=== PATIENT | male | born 1950 | race Caucasian/White ===

== ENCOUNTER 2017-12-05 13:15 | Emergency (ER) | payer MEDICARE, OTHER ==
[~2017-12-05] VITALS: Ht 175.3 cm; Wt 62.5 kg
[2017-12-05 13:25] VITALS: BP 139/59
[2017-12-05] MEDS ORDERED: [UNRECOGNIZED DRUG - OTHER] PO (13:34)
[2017-12-05] MEDS ORDERED: BUPR100 PO (13:34)
[2017-12-05] MEDS ORDERED: TRAZ150 PO (13:34)
[2017-12-05] MEDS ORDERED: OMEP10 PO (13:34)
[2017-12-05] MEDS ORDERED: PARO10TA89 PO (13:34)
== END 2017-12-05 14:39 | disposition left against medical advice (07) ==
LOC: EMS 13:19
DX: F32.9 Major depressive disorder, single episode, unspecified (principal); F12.10 Cannabis abuse, uncomplicated; F17.210 Nicotine dependence, cigarettes, uncomplicated
CPT/HCPCS: 99284

== ENCOUNTER 2017-12-11 13:37 | Emergency (ER) | payer MEDICARE, OTHER ==
[~2017-12-11] VITALS: Ht 175.3 cm; Wt 61.8 kg
[~2017-12-11 13:37] MED LIST: BUPR100 PO; OMEP10 PO; PARO10TA89 PO; TRAZ150 PO; [UNRECOGNIZED DRUG - OTHER] PO
[2017-12-11] MEDS ORDERED: [UNRECOGNIZED DRUG - CODE] PO (14:03)
[2017-12-11] MEDS ORDERED: FINA5TAB41 PO (14:03)
[2017-12-11] MEDS ORDERED: FOLI0.4T4 PO (14:03)
[2017-12-11] MEDS ORDERED: METH10SO PO (14:03)
[2017-12-11] MEDS ORDERED: MECL-111 PO (14:03)
[2017-12-11] MEDS ORDERED: PARO10TA89 PO (14:03)
[2017-12-11] MEDS ORDERED: PANT40TA25 PO (14:03)
[2017-12-11 14:36] VITALS: BP 137/78
== END 2017-12-11 14:46 | disposition home or self-care (01) ==
LOC: EMS 13:39
DX: F32.9 Major depressive disorder, single episode, unspecified (principal); G89.29 Other chronic pain; M54.9 Dorsalgia, unspecified; N40.0 Benign prostatic hyperplasia without lower urinary tract symptoms; F17.210 Nicotine dependence, cigarettes, uncomplicated; Z88.8 Allergy status to other drugs, medicaments and biological substances; Z79.899 Other long term (current) drug therapy
CPT/HCPCS: 99284

== ENCOUNTER 2022-11-22 12:11 | Inpatient (IN) | payer MEDICARE, MEDICAID ==
[~2022-11-22] VITALS: Ht 175.3 cm; Wt 74.6 kg
[~2022-11-22 12:11] MED LIST changes: +BUPR-345 PO; -BUPR100 PO; +FINA-27 PO; +FOLI0.4T6 PO; +GABA-583 PO; +MECL-160 PO; +METH10SO PO; -OMEP10 PO; +PANT-31 PO; -TRAZ150 PO; +TRAZ150T79 PO; +[UNRECOGNIZED DRUG - CODE] PO
[2022-11-22] MEDS ORDERED: TOPI25 PO (13:11)
[2022-11-22] MEDS ORDERED: BUPR-50 PO (13:11)
[2022-11-22] MEDS ORDERED: PROP20TA96 PO (13:11)
[2022-11-22] MEDS ORDERED: LISI2.5T13 PO (13:11)
[2022-11-22] MEDS ORDERED: METO25 PO (13:11)
[2022-11-22] MEDS ORDERED: SODIUM CHLORIDE 0.9% 2,250 ML IV ONE (13:15)
[2022-11-22] MEDS ORDERED: 0.9% SODIUM CHLORIDE 10 ML SYRINGE IVP PRN (13:15)
[2022-11-22 13:26] LABS: COVID AG,FIA SOURCE NASAL SWAB
[2022-11-22 14:18] LABS: BASOPHILS % (AUTO) 0.4 % (0.0-2.0); EOSINOPHILS % (AUTO) 0.1 % (1.0-6.0); HEMATOCRIT 43.8 % (41-53); HEMOGLOBIN 14.4 g/dL (13.5-17.5); LYMPHOCYTES # (AUTO) 1.2 K/uL (1.0-4.8); LYMPHOCYTES % (AUTO) 13.8 % (22.0-44.0); MEAN CORPUSCULAR HEMOGLOBIN 32.1 pg (26.0-34.0); MEAN CORPUSCULAR HGB CONC 32.7 G/dL (31.0-37.0); MEAN CORPUSCULAR VOLUME 98 fL (80-100); MONOCYTES % (AUTO) 11.8 % (2.0-9.0); NEUTROPHILS # (AUTO) 6.4 K/uL (1.8-7.7); NEUTROPHILS % (AUTO) 73.9 % (40.0-70.0); PLATELET COUNT (AUTO) 219 K/uL (150-450); RED BLOOD CELL COUNT(AUTO) 4.47 MIL/uL (4.50-5.90); RED CELL DISTRIBUTION WIDTH 14.2 % (11.5-14.5)
[2022-11-22 14:23] LABS: ANION GAP 12 mmol/L (8-16); CALCIUM, TOTAL 9.5 mg/dL (8.8-10.5); CARBON DIOXIDE 24 mmol/L (22-29); CHLORIDE 98 mmol/L (98-107); CREATININE 1.21 mg/dL (0.60-1.30); GLOMERULAR FILTR. RATE CALC 59 mL/min (>60); GLUCOSE,RANDOM 118 mg/dL (70-110); SODIUM SERUM 134 mmol/L (136-145); UREA NITROGEN, BLOOD 12 mg/dL (7-18)
[2022-11-22 14:26] LABS: D-DIMER 0.76 mg/L FEU (0.00-0.50); INR 1.1 (0.9-1.1); PROTHROMBIN TIME 11.2 SEC (9.4-11.6)
[2022-11-22 14:31] LABS: INFLUENZA TYPE A NEGATIVE FOR TYPE A (NEGATIVE); INFLUENZA TYPE B NEGATIVE FOR TYPE B (NEGATIVE)
[2022-11-22 14:32] LABS: LACTIC ACID 1.5 mmol/L (0.4-2.0)
[2022-11-22 14:33] LABS: B-TYPE NATRIURETIC PEPTIDE 45 pg/mL (0-100)
[2022-11-22] MEDS ORDERED: SODIUM CHLORIDE 0.9% 100 ML ONE (14:39)
[2022-11-22 14:46] LABS: ALANINE AMINOTRANSFERASE 30 U/L (12-78); ALBUMIN 3.8 g/dL (3.4-5.0); ALKALINE PHOSPHATASE 100 U/L (46-116); ASPARTATE AMINOTRANSFERASE 24 U/L (15-37); BILIRUBIN,TOTAL 0.7 mg/dL (0.1-1.0); CREATINE KINASE, TOTAL ONLY 170 U/L (39-308); TOTAL PROTEIN, SERUM 7.9 g/dL (6.4-8.2)
[2022-11-22 15:49] LABS: AMPHET/METH SCREEN,URINE NEGATIVE (NEGATIVE); BARBITURATE SCREEN, URINE NEGATIVE (NEGATIVE); BENZODIAZEPINES SCREEN,URINE NEGATIVE (NEGATIVE); CANNABINOID SCREEN,URINE POSITIVE (NEGATIVE); COCAINE SCREEN,URINE NEGATIVE (NEGATIVE); METHADONE SCREEN, URINE NEGATIVE (NEGATIVE); OPIATE SCREEN,URINE NEGATIVE (NEGATIVE); PHENCYCLIDINE SCREEN,URINE NEGATIVE (NEGATIVE)
[2022-11-22 16:02] LABS: APPEARANCE,URINE TURBID (CLEAR); BILIRUBIN,URINE NEGATIVE (NEGATIVE); GLUCOSE, URINE (UA) NEGATIVE (NEGATIVE); LEUKOCYTE ESTERASE ,URINE LARGE (NEGATIVE); NITRATE,URINE POSITIVE (NEGATIVE); OCCULT BLOOD,URINE SMALL (NEGATIVE); PROTEIN,URINE 30-70 mg/dL (NEGATIVE); SPECIFIC GRAVITIY, URINE 1.012 (1.003-1.030); UROBILINOGEN,URINE <=1.0 mg/dL (<=1.0)
[2022-11-22] MEDS ORDERED: IOHEXOL 350 MG/ML 100 ML VIAL ONE (16:03)
[2022-11-22 16:10] LABS: BACTERIA,URINE Many /HPF (None Seen); SQUAMOUS EPITHELIAL CELL,UR Few /LPF (None Seen); WBC,URINE >100 /HPF (0-5)
[2022-11-22] MEDS ORDERED: CefTRIAXone 1 GM/DEXTROSE 50 ML IV ONE (16:15)
[2022-11-22] MEDS ORDERED: ACETAMINOPHEN 500 MG TABLET PO ONE (17:45)
[2022-11-22] MEDS ORDERED: DIAZEPAM 5 MG/ML 2 ML SYRINGE IVP ONE (18:30)
[2022-11-22] MEDS ORDERED: ACETAMINOPHEN 325 MG TABLET PO PRN ×2 (18:45→19:45)
[2022-11-22] MEDS ORDERED: ONDANSETRON HCL 4 MG/2 ML VIAL IVP PRN ×2 (18:45→19:45)
[2022-11-22] MEDS ORDERED: MAGNESIUM HYDROXIDE SUSPENSION 30 ML UDCUP PO PRN (19:45)
[2022-11-22] MEDS ORDERED: MORPHINE SULFATE 2 MG/ML SYRINGE IVP PRN (19:45)
[2022-11-22] MEDS ORDERED: BISACODYL 10 MG RECTAL RECTAL SUPPOSITORY PR PRN (19:45)
[2022-11-22] MEDS ORDERED: *CLINICAL-LEVOFLOXACIN IVPB DOSING CLINICAL ONE (19:45)
[2022-11-22] MEDS ORDERED: HYDROCODONE/ACETAMINOPHEN 5-325 MG TABLET PO PRN (19:45)
[2022-11-22] MEDS ORDERED: ChlordiazePOXIDE HCL 25 MG CAPSULE PO PRN ×2 (19:45→20:15)
[2022-11-22] MEDS ORDERED: MAGNESIUM SULFATE 2 GM, MVI, ADULT NO.1 WITH VIT K 10 ML, THIAMINE 100 MG, FOLIC ACID 1... IV ONE ×5 (19:45)
[2022-11-22] MEDS ORDERED: ZOLPIDEM TARTRATE 5 MG TABLET PO PRN (19:45)
[2022-11-22] MEDS: TOPIRAMATE 25 MG TABLET PO SCH (20:39)
[2022-11-22] MEDS ORDERED: ChlordiazePOXIDE HCL 10 MG CAPSULE PO SCH (21:00)
[2022-11-22] MEDS ORDERED: LEVOFLOXACIN 500 MG/D5% WATER 100 ML IV SCH (21:00)
[2022-11-22 21:06] VITALS: BP 127/81
[2022-11-23] MEDS: HEPARIN SODIUM,PORCINE 5,000 UNITS/ML VIAL SQ SCH ×3 (02:01→17:06)
[2022-11-23] MEDS: DOCUSATE SODIUM 100 MG CAPSULE PO SCH ×3 (02:01→20:59)
[2022-11-23 03:35] VITALS: BP 127/77
[2022-11-23] MEDS ORDERED: ChlordiazePOXIDE HCL 25 MG CAPSULE PO PRN ×2 (07:00)
[2022-11-23 07:38] LABS: ANION GAP 11 mmol/L (8-16); CALCIUM, TOTAL 8.3 mg/dL (8.8-10.5); CARBON DIOXIDE 20 mmol/L (22-29); CHLORIDE 103 mmol/L (98-107); CREATININE 1.04 mg/dL (0.60-1.30); GLOMERULAR FILTR. RATE CALC > 60 mL/min (>60); GLUCOSE,RANDOM 93 mg/dL (70-110); POTASSIUM 3.9 mmol/L (3.5-5.1); SODIUM SERUM 134 mmol/L (136-145); UREA NITROGEN, BLOOD 10 mg/dL (7-18)
[2022-11-23 08:01] VITALS: BP 124/80
[2022-11-23] MEDS ORDERED: ChlordiazePOXIDE HCL 25 MG CAPSULE PO SCH (09:00)
[2022-11-23] MEDS: PANTOPRAZOLE SODIUM 40 MG DR TABLET PO SCH (09:10)
[2022-11-23 09:11] LABS: BASOPHILS % (AUTO) 0.3 % (0.0-2.0); EOSINOPHILS % (AUTO) 0.7 % (1.0-6.0); HEMATOCRIT 39.3 % (41-53); HEMOGLOBIN 12.8 g/dL (13.5-17.5); LYMPHOCYTES # (AUTO) 1.3 K/uL (1.0-4.8); LYMPHOCYTES % (AUTO) 19.4 % (22.0-44.0); MEAN CORPUSCULAR HEMOGLOBIN 32.3 pg (26.0-34.0); MEAN CORPUSCULAR HGB CONC 32.5 G/dL (31.0-37.0); MEAN CORPUSCULAR VOLUME 99 fL (80-100); MONOCYTES # (AUTO) 0.6 K/uL (0.1-1.0); MONOCYTES % (AUTO) 9.9 % (2.0-9.0); NEUTROPHILS # (AUTO) 4.6 K/uL (1.8-7.7); NEUTROPHILS % (AUTO) 69.7 % (40.0-70.0); PLATELET COUNT (AUTO) 175 K/uL (150-450); RED BLOOD CELL COUNT(AUTO) 3.96 MIL/uL (4.50-5.90); RED CELL DISTRIBUTION WIDTH 14.6 % (11.5-14.5)
[2022-11-23] MEDS: PARoxetine HCL 10 MG TABLET PO SCH (09:11)
[2022-11-23] MEDS: BuPROPion HCL XL 150 MG ER TABLET PO SCH (09:11)
[2022-11-23] MEDS: METOPROLOL TARTRATE 25 MG TABLET PO SCH (09:11)
[2022-11-23] MEDS: TOPIRAMATE 25 MG TABLET PO SCH ×2 (09:11→20:59)
[2022-11-23] MEDS: FINASTERIDE 5 MG TABLET PO SCH (09:11)
[2022-11-23] MEDS: ChlordiazePOXIDE HCL 25 MG CAPSULE PO SCH ×4 (09:11→20:59)
[2022-11-23 11:32] VITALS: BP 128/89
[2022-11-23 16:00] VITALS: BP 133/83
[2022-11-23 20:39] VITALS: BP 118/76
[2022-11-23] MEDS: LEVOFLOXACIN 750 MG/D5% WATER 150 ML IV SCH (20:59)
[2022-11-24] VITALS (7 sets, daily range): BP systolic 104–140; BP diastolic 58–86
[2022-11-24] MEDS: HEPARIN SODIUM,PORCINE 5,000 UNITS/ML VIAL SQ SCH ×4 (00:04→23:32)
[2022-11-24 07:10] LABS: BASOPHILS % (AUTO) 0.3 % (0.0-2.0); EOSINOPHILS % (AUTO) 0.9 % (1.0-6.0); HEMATOCRIT 39.6 % (41-53); HEMOGLOBIN 13.3 g/dL (13.5-17.5); LYMPHOCYTES # (AUTO) 1.7 K/uL (1.0-4.8); MEAN CORPUSCULAR HEMOGLOBIN 33.1 pg (26.0-34.0); MEAN CORPUSCULAR HGB CONC 33.7 G/dL (31.0-37.0); MEAN CORPUSCULAR VOLUME 98 fL (80-100); MONOCYTES # (AUTO) 0.7 K/uL (0.1-1.0); MONOCYTES % (AUTO) 12.6 % (2.0-9.0); NEUTROPHILS % (AUTO) 55.2 % (40.0-70.0); PLATELET COUNT (AUTO) 192 K/uL (150-450); RED BLOOD CELL COUNT(AUTO) 4.03 MIL/uL (4.50-5.90)
[2022-11-24 07:30] LABS: ANION GAP 11 mmol/L (8-16); CALCIUM, TOTAL 8.5 mg/dL (8.8-10.5); CARBON DIOXIDE 20 mmol/L (22-29); CHLORIDE 105 mmol/L (98-107); CREATININE 1.07 mg/dL (0.60-1.30); GLOMERULAR FILTR. RATE CALC > 60 mL/min (>60); GLUCOSE,RANDOM 92 mg/dL (70-110); POTASSIUM 3.8 mmol/L (3.5-5.1); SODIUM SERUM 136 mmol/L (136-145); UREA NITROGEN, BLOOD 10 mg/dL (7-18)
[2022-11-24] MEDS: PARoxetine HCL 10 MG TABLET PO SCH (09:14)
[2022-11-24] MEDS: ChlordiazePOXIDE HCL 25 MG CAPSULE PO SCH ×4 (09:14→21:34)
[2022-11-24] MEDS: FINASTERIDE 5 MG TABLET PO SCH (09:14)
[2022-11-24] MEDS: PANTOPRAZOLE SODIUM 40 MG DR TABLET PO SCH (09:14)
[2022-11-24] MEDS: DOCUSATE SODIUM 100 MG CAPSULE PO SCH ×2 (09:14→21:34)
[2022-11-24] MEDS: BuPROPion HCL XL 150 MG ER TABLET PO SCH (09:15)
[2022-11-24] MEDS: METOPROLOL TARTRATE 25 MG TABLET PO SCH (09:15)
[2022-11-24] MEDS: TOPIRAMATE 25 MG TABLET PO SCH ×2 (09:16→21:33)
[2022-11-24] MEDS: MAGNESIUM SULFATE 2 GM, MVI, ADULT NO.1 WITH VIT K 10 ML, THIAMINE 100 MG, FOLIC ACID 1... IV SCH ×5 (16:14)
[2022-11-24] MEDS ORDERED: SODIUM CHLORIDE 0.9% 500 ML IV ONE (21:29)
[2022-11-24] MEDS: LEVOFLOXACIN 750 MG/D5% WATER 150 ML IV SCH (21:33)
[2022-11-25 05:08] VITALS: BP 128/82
[2022-11-25] MEDS ORDERED: ChlordiazePOXIDE HCL 10 MG CAPSULE PO PRN ×2 (07:00)
[2022-11-25 07:24] VITALS: BP 140/84
[2022-11-25 07:51] LABS: ANION GAP 9 mmol/L (8-16); CALCIUM, TOTAL 8.3 mg/dL (8.8-10.5); CARBON DIOXIDE 21 mmol/L (22-29); CHLORIDE 104 mmol/L (98-107); CREATININE 1.15 mg/dL (0.60-1.30); GLOMERULAR FILTR. RATE CALC > 60 mL/min (>60); GLUCOSE,RANDOM 113 mg/dL (70-110); SODIUM SERUM 134 mmol/L (136-145); UREA NITROGEN, BLOOD 12 mg/dL (7-18)
[2022-11-25 08:26] LABS: BASOPHILS % (AUTO) 0.3 % (0.0-2.0); EOSINOPHILS % (AUTO) 0.8 % (1.0-6.0); LYMPHOCYTES # (AUTO) 1.3 K/uL (1.0-4.8); LYMPHOCYTES % (AUTO) 23.1 % (22.0-44.0); MEAN CORPUSCULAR HEMOGLOBIN 32.8 pg (26.0-34.0); MEAN CORPUSCULAR HGB CONC 33.3 G/dL (31.0-37.0); MEAN CORPUSCULAR VOLUME 98 fL (80-100); MONOCYTES # (AUTO) 0.7 K/uL (0.1-1.0); MONOCYTES % (AUTO) 12.1 % (2.0-9.0); NEUTROPHILS # (AUTO) 3.7 K/uL (1.8-7.7); NEUTROPHILS % (AUTO) 63.7 % (40.0-70.0); PLATELET COUNT (AUTO) 191 K/uL (150-450); RED BLOOD CELL COUNT(AUTO) 3.96 MIL/uL (4.50-5.90); RED CELL DISTRIBUTION WIDTH 14.2 % (11.5-14.5)
[2022-11-25] MEDS: PARoxetine HCL 10 MG TABLET PO SCH (09:02)
[2022-11-25] MEDS: DOCUSATE SODIUM 100 MG CAPSULE PO SCH ×2 (09:04→21:00)
[2022-11-25] MEDS: BuPROPion HCL XL 150 MG ER TABLET PO SCH (09:04)
[2022-11-25] MEDS: TOPIRAMATE 25 MG TABLET PO SCH ×2 (09:04→21:19)
[2022-11-25] MEDS: PANTOPRAZOLE SODIUM 40 MG DR TABLET PO SCH (09:05)
[2022-11-25] MEDS: FINASTERIDE 5 MG TABLET PO SCH (09:05)
[2022-11-25] MEDS: METOPROLOL TARTRATE 25 MG TABLET PO SCH (09:05)
[2022-11-25] MEDS: ChlordiazePOXIDE HCL 10 MG CAPSULE PO SCH ×4 (09:06→21:19)
[2022-11-25] MEDS: HEPARIN SODIUM,PORCINE 5,000 UNITS/ML VIAL SQ SCH ×3 (09:17→23:55)
[2022-11-25 11:41] VITALS: BP 121/83
[2022-11-25 15:35] VITALS: BP 119/78
[2022-11-25] MEDS: MAGNESIUM SULFATE 2 GM, MVI, ADULT NO.1 WITH VIT K 10 ML, THIAMINE 100 MG, FOLIC ACID 1... IV SCH ×5 (16:56)
[2022-11-25 20:44] VITALS: BP 138/90
[2022-11-25] MEDS: LEVOFLOXACIN 750 MG/D5% WATER 150 ML IV SCH (21:19)
[2022-11-25] MEDS ORDERED: LORazepam 2 MG/ML VIAL IVP PRN (23:45)
[2022-11-26 00:24] VITALS: BP 132/78
[2022-11-26 04:13] VITALS: BP 129/85
[2022-11-26] MEDS ORDERED: ChlordiazePOXIDE HCL 10 MG CAPSULE PO PRN ×2 (07:00)
[2022-11-26 07:08] LABS: BASOPHILS % (AUTO) 0.4 % (0.0-2.0); EOSINOPHILS % (AUTO) 1.1 % (1.0-6.0); HEMATOCRIT 36.1 % (41-53); HEMOGLOBIN 11.9 g/dL (13.5-17.5); LYMPHOCYTES # (AUTO) 1.8 K/uL (1.0-4.8); LYMPHOCYTES % (AUTO) 35.7 % (22.0-44.0); MEAN CORPUSCULAR HEMOGLOBIN 32.3 pg (26.0-34.0); MEAN CORPUSCULAR VOLUME 98 fL (80-100); MONOCYTES # (AUTO) 0.6 K/uL (0.1-1.0); MONOCYTES % (AUTO) 11.1 % (2.0-9.0); NEUTROPHILS # (AUTO) 2.6 K/uL (1.8-7.7); NEUTROPHILS % (AUTO) 51.7 % (40.0-70.0); PLATELET COUNT (AUTO) 219 K/uL (150-450); RED BLOOD CELL COUNT(AUTO) 3.69 MIL/uL (4.50-5.90); RED CELL DISTRIBUTION WIDTH 14.5 % (11.5-14.5)
[2022-11-26 07:18] VITALS: BP 138/83
[2022-11-26 07:22] LABS: ALANINE AMINOTRANSFERASE 33 U/L (12-78); ALBUMIN 2.8 g/dL (3.4-5.0); ALKALINE PHOSPHATASE 75 U/L (46-116); ANION GAP 12 mmol/L (8-16); ASPARTATE AMINOTRANSFERASE 21 U/L (15-37); BILIRUBIN,TOTAL 0.3 mg/dL (0.1-1.0); CALCIUM, TOTAL 8.6 mg/dL (8.8-10.5); CARBON DIOXIDE 19 mmol/L (22-29); CHLORIDE 108 mmol/L (98-107); CREATININE 0.92 mg/dL (0.60-1.30); GLOMERULAR FILTR. RATE CALC > 60 mL/min (>60); GLUCOSE,RANDOM 98 mg/dL (70-110); SODIUM SERUM 139 mmol/L (136-145); UREA NITROGEN, BLOOD 13 mg/dL (7-18)
[2022-11-26] MEDS: DOCUSATE SODIUM 100 MG CAPSULE PO SCH ×2 (09:04→21:55)
[2022-11-26] MEDS: PANTOPRAZOLE SODIUM 40 MG DR TABLET PO SCH (09:05)
[2022-11-26] MEDS: FINASTERIDE 5 MG TABLET PO SCH (09:06)
[2022-11-26] MEDS: TOPIRAMATE 25 MG TABLET PO SCH ×2 (09:06→21:55)
[2022-11-26] MEDS: METOPROLOL TARTRATE 25 MG TABLET PO SCH (09:06)
[2022-11-26] MEDS: HEPARIN SODIUM,PORCINE 5,000 UNITS/ML VIAL SQ SCH ×2 (09:06→16:27)
[2022-11-26] MEDS: BuPROPion HCL XL 150 MG ER TABLET PO SCH (09:07)
[2022-11-26] MEDS: PARoxetine HCL 10 MG TABLET PO SCH (09:07)
[2022-11-26 11:14] VITALS: BP 118/71
[2022-11-26] MEDS: [UNRECOGNIZED DRUG - REMARK] IV SCH ×6 (15:03)
[2022-11-26 15:15] VITALS: BP 123/73
[2022-11-26 20:00] VITALS: BP 121/69
[2022-11-26] MEDS: LEVOFLOXACIN 750 MG/D5% WATER 150 ML IV SCH (21:54)
[2022-11-27] VITALS (7 sets, daily range): BP systolic 108–130; BP diastolic 63–76
[2022-11-27] MEDS: HEPARIN SODIUM,PORCINE 5,000 UNITS/ML VIAL SQ SCH ×3 (00:50→15:40)
[2022-11-27 07:28] LABS: ALANINE AMINOTRANSFERASE 36 U/L (12-78); ALBUMIN 2.8 g/dL (3.4-5.0); ALKALINE PHOSPHATASE 76 U/L (46-116); ANION GAP 9 mmol/L (8-16); ASPARTATE AMINOTRANSFERASE 26 U/L (15-37); BILIRUBIN,TOTAL 0.3 mg/dL (0.1-1.0); CALCIUM, TOTAL 8.9 mg/dL (8.8-10.5); CARBON DIOXIDE 20 mmol/L (22-29); CHLORIDE 108 mmol/L (98-107); CREATININE 0.88 mg/dL (0.60-1.30); GLOMERULAR FILTR. RATE CALC > 60 mL/min (>60); GLUCOSE,RANDOM 98 mg/dL (70-110); POTASSIUM 3.9 mmol/L (3.5-5.1); SODIUM SERUM 137 mmol/L (136-145); TOTAL PROTEIN, SERUM 7.1 g/dL (6.4-8.2); UREA NITROGEN, BLOOD 13 mg/dL (7-18)
[2022-11-27 07:29] LABS: BASOPHILS % (AUTO) 0.6 % (0.0-2.0); EOSINOPHILS % (AUTO) 1.4 % (1.0-6.0); HEMATOCRIT 37.7 % (41-53); HEMOGLOBIN 12.7 g/dL (13.5-17.5); LYMPHOCYTES # (AUTO) 1.7 K/uL (1.0-4.8); LYMPHOCYTES % (AUTO) 31.5 % (22.0-44.0); MEAN CORPUSCULAR HEMOGLOBIN 33.1 pg (26.0-34.0); MEAN CORPUSCULAR HGB CONC 33.8 G/dL (31.0-37.0); MEAN CORPUSCULAR VOLUME 98 fL (80-100); MONOCYTES # (AUTO) 0.4 K/uL (0.1-1.0); MONOCYTES % (AUTO) 8.3 % (2.0-9.0); NEUTROPHILS # (AUTO) 3.1 K/uL (1.8-7.7); NEUTROPHILS % (AUTO) 58.2 % (40.0-70.0); PLATELET COUNT (AUTO) 223 K/uL (150-450); RED BLOOD CELL COUNT(AUTO) 3.85 MIL/uL (4.50-5.90); RED CELL DISTRIBUTION WIDTH 14.2 % (11.5-14.5)
[2022-11-27] MEDS: PANTOPRAZOLE SODIUM 40 MG DR TABLET PO SCH (09:13)
[2022-11-27] MEDS: DOCUSATE SODIUM 100 MG CAPSULE PO SCH ×2 (09:14→20:52)
[2022-11-27] MEDS: METOPROLOL TARTRATE 25 MG TABLET PO SCH (09:15)
[2022-11-27] MEDS: BuPROPion HCL XL 150 MG ER TABLET PO SCH (09:15)
[2022-11-27] MEDS: FINASTERIDE 5 MG TABLET PO SCH (09:15)
[2022-11-27] MEDS: TOPIRAMATE 25 MG TABLET PO SCH ×2 (09:15→20:52)
[2022-11-27] MEDS: PARoxetine HCL 10 MG TABLET PO SCH (09:15)
[2022-11-27] MEDS: [UNRECOGNIZED DRUG - REMARK] IV SCH ×6 (15:39)
[2022-11-27] MEDS: LEVOFLOXACIN 750 MG/D5% WATER 150 ML IV SCH (20:52)
[2022-11-28] MEDS: HEPARIN SODIUM,PORCINE 5,000 UNITS/ML VIAL SQ SCH ×3 (00:31→16:32)
[2022-11-28 03:30] VITALS: BP 128/78
[2022-11-28 07:17] LABS: BASOPHILS % (AUTO) 0.9 % (0.0-2.0); EOSINOPHILS % (AUTO) 1.5 % (1.0-6.0); HEMATOCRIT 37.2 % (41-53); HEMOGLOBIN 12.5 g/dL (13.5-17.5); LYMPHOCYTES # (AUTO) 1.9 K/uL (1.0-4.8); LYMPHOCYTES % (AUTO) 35.9 % (22.0-44.0); MEAN CORPUSCULAR HEMOGLOBIN 32.7 pg (26.0-34.0); MEAN CORPUSCULAR HGB CONC 33.5 G/dL (31.0-37.0); MEAN CORPUSCULAR VOLUME 98 fL (80-100); MONOCYTES # (AUTO) 0.4 K/uL (0.1-1.0); MONOCYTES % (AUTO) 8.2 % (2.0-9.0); NEUTROPHILS # (AUTO) 2.9 K/uL (1.8-7.7); NEUTROPHILS % (AUTO) 53.5 % (40.0-70.0); PLATELET COUNT (AUTO) 242 K/uL (150-450); RED BLOOD CELL COUNT(AUTO) 3.81 MIL/uL (4.50-5.90); RED CELL DISTRIBUTION WIDTH 14.2 % (11.5-14.5)
[2022-11-28 07:43] LABS: ALANINE AMINOTRANSFERASE 49 U/L (12-78); ALBUMIN 2.8 g/dL (3.4-5.0); ALKALINE PHOSPHATASE 81 U/L (46-116); ANION GAP 8 mmol/L (8-16); ASPARTATE AMINOTRANSFERASE 30 U/L (15-37); BILIRUBIN,TOTAL 0.2 mg/dL (0.1-1.0); CALCIUM, TOTAL 9.4 mg/dL (8.8-10.5); CARBON DIOXIDE 24 mmol/L (22-29); CHLORIDE 108 mmol/L (98-107); CREATININE 1.13 mg/dL (0.60-1.30); GLOMERULAR FILTR. RATE CALC > 60 mL/min (>60); GLUCOSE,RANDOM 139 mg/dL (70-110); POTASSIUM 4.5 mmol/L (3.5-5.1); SODIUM SERUM 140 mmol/L (136-145); TOTAL PROTEIN, SERUM 7.2 g/dL (6.4-8.2); UREA NITROGEN, BLOOD 17 mg/dL (7-18)
[2022-11-28 07:54] VITALS: BP 133/82
[2022-11-28] MEDS: METOPROLOL TARTRATE 25 MG TABLET PO SCH (10:20)
[2022-11-28] MEDS: TOPIRAMATE 25 MG TABLET PO SCH (10:20)
[2022-11-28] MEDS: DOCUSATE SODIUM 100 MG CAPSULE PO SCH (10:20)
[2022-11-28] MEDS: FINASTERIDE 5 MG TABLET PO SCH (10:20)
[2022-11-28] MEDS: PANTOPRAZOLE SODIUM 40 MG DR TABLET PO SCH (10:21)
[2022-11-28] MEDS: PARoxetine HCL 10 MG TABLET PO SCH (10:21)
[2022-11-28] MEDS: BuPROPion HCL XL 150 MG ER TABLET PO SCH (10:21)
[2022-11-28 11:23] VITALS: BP 125/80
[2022-11-28 15:25] VITALS: BP 132/80
== END 2022-11-28 19:15 | DRG 690 ==
LOC: EMS 12:13 → 5S 20:00 → 5N 11-24 06:30
PROVIDERS: ADMIT Internal Medicine; ATTEND Internal Medicine
DX: N39.0 Urinary tract infection, site not specified (principal); F11.20 Opioid dependence, uncomplicated; F10.131 Alcohol abuse with withdrawal delirium; I10 Essential (primary) hypertension; F17.210 Nicotine dependence, cigarettes, uncomplicated; F32.A Depression, unspecified; N40.0 Benign prostatic hyperplasia without lower urinary tract symptoms; G89.29 Other chronic pain; Z20.822 Contact with and (suspected) exposure to COVID-19; R53.81 Other malaise; M54.9 Dorsalgia, unspecified; F12.90 Cannabis use, unspecified, uncomplicated; Y90.9 Presence of alcohol in blood, level not specified; Z88.8 Allergy status to other drugs, medicaments and biological substances; Z79.899 Other long term (current) drug therapy
CPT/HCPCS: 36245; 36569; 71045; 71275; 76937; 80048; 80053; 80307; 81001; 82550; 83605; 83880; 84145; 84484; 85025; 85379; 85610; 85730; 87040; 87086; 87186; 87804; 93005; 97116; 97162; 97166; 97530; 97535; 99285; G0378; G0480; J0696; J1644; J1956; J3411; J3475; J3490; J7030; J7040; J7050; Q9967; 36415-L1; 36415-TC

== ENCOUNTER 2023-05-04 18:44 | Emergency (ER) | payer MEDICARE, MEDICAID ==
[~2023-05-04] VITALS: Ht 175.3 cm; Wt 60.0 kg
[~2023-05-04 18:44] MED LIST changes: -BUPR-345 PO; +BUPR-50 PO; -GABA-583 PO; +LISI2.5T13 PO; -MECL-160 PO; +METO25 PO; +PROP20TA96 PO; +TOPI25 PO; -TRAZ150T79 PO; -[UNRECOGNIZED DRUG - CODE] PO; -[UNRECOGNIZED DRUG - OTHER] PO
[2023-05-04 20:10] VITALS: TEMP 98.6
[2023-05-04] MEDS ORDERED: MAGNESIUM SULFATE 2 GM, MVI, ADULT NO.1 WITH VIT K 10 ML, THIAMINE 100 MG, FOLIC ACID 1... IV ONE ×5 (21:15)
[2023-05-04 23:08] LABS: AMPHET/METH SCREEN,URINE NEGATIVE (NEGATIVE); BARBITURATE SCREEN, URINE NEGATIVE (NEGATIVE); BENZODIAZEPINES SCREEN,URINE NEGATIVE (NEGATIVE); CANNABINOID SCREEN,URINE POSITIVE (NEGATIVE); COCAINE SCREEN,URINE NEGATIVE (NEGATIVE); METHADONE SCREEN, URINE NEGATIVE (NEGATIVE); OPIATE SCREEN,URINE NEGATIVE (NEGATIVE); PHENCYCLIDINE SCREEN,URINE NEGATIVE (NEGATIVE)
[2023-05-04 23:10] LABS: APPEARANCE,URINE HAZY (CLEAR); BILIRUBIN,URINE NEGATIVE (NEGATIVE); GLUCOSE, URINE (UA) NEGATIVE (NEGATIVE); KETONES,URINE NEGATIVE (NEGATIVE); LEUKOCYTE ESTERASE ,URINE LARGE (NEGATIVE); NITRATE,URINE NEGATIVE (NEGATIVE); OCCULT BLOOD,URINE TRACE (NEGATIVE); PH,URINE 5.5 (5.0-8.0); PROTEIN,URINE 30-70 mg/dL (NEGATIVE); SPECIFIC GRAVITIY, URINE 1.018 (1.003-1.030); UROBILINOGEN,URINE <=1.0 mg/dL (<=1.0)
[2023-05-04 23:13] LABS: BACTERIA,URINE Moderate /HPF (None Seen); RBC,URINE 0-2 /HPF (0-2); SQUAMOUS EPITHELIAL CELL,UR Few /LPF (None Seen); WBC,URINE 26-50 /HPF (0-5)
[2023-05-04 23:30] VITALS: BP 112/72; PULSE 97; RESP 16
[2023-05-04 23:43] LABS: EOSINOPHILS % (AUTO) 0.3 % (1.0-6.0); HEMATOCRIT 40.5 % (41-53); LYMPHOCYTES # (AUTO) 2.1 K/uL (1.0-4.8); LYMPHOCYTES % (AUTO) 29.5 % (22.0-44.0); MEAN CORPUSCULAR HEMOGLOBIN 31.8 pg (26.0-34.0); MEAN CORPUSCULAR HGB CONC 32.1 G/dL (31.0-37.0); MEAN CORPUSCULAR VOLUME 99 fL (80-100); MONOCYTES # (AUTO) 0.7 K/uL (0.1-1.0); MONOCYTES % (AUTO) 9.6 % (2.0-9.0); NEUTROPHILS # (AUTO) 4.2 K/uL (1.8-7.7); NEUTROPHILS % (AUTO) 59.6 % (40.0-70.0); PLATELET COUNT (AUTO) 221 K/uL (150-450); RED BLOOD CELL COUNT(AUTO) 4.09 MIL/uL (4.50-5.90); RED CELL DISTRIBUTION WIDTH 15.6 % (11.5-14.5)
[2023-05-05 00:25] LABS: B-TYPE NATRIURETIC PEPTIDE 20 pg/mL (0-100)
[2023-05-05 00:44] LABS: ALBUMIN 2.8 g/dL (3.4-5.0); BILIRUBIN,TOTAL 0.3 mg/dL (0.1-1.0); CALCIUM, TOTAL 8.6 mg/dL (8.8-10.5); CREATININE 1.2 mg/dL (0.60-1.30); TOTAL PROTEIN, SERUM 6.2 g/dL (6.4-8.2)
== END 2023-05-05 01:27 | disposition home or self-care (01) ==
LOC: EMS 18:57
DX: S09.90XA Unspecified injury of head, initial encounter (principal); M25.512 Pain in left shoulder; F10.129 Alcohol abuse with intoxication, unspecified; F32.A Depression, unspecified; G89.29 Other chronic pain; F17.210 Nicotine dependence, cigarettes, uncomplicated; F12.90 Cannabis use, unspecified, uncomplicated; Z88.8 Allergy status to other drugs, medicaments and biological substances; W19.XXXA Unspecified fall, initial encounter; Y93.89 Activity, other specified; Y92.89 Other specified places as the place of occurrence of the external cause; Y99.8 Other external cause status
CPT/HCPCS: 99285; 70450; 96365; 71045; 80053; 81001; 82550; 83880; 84484; 85025; 36415; 87086; 87186; 73030 ×2; 72125; 93005; 80307 ×2; J3490 ×2; J3411; J3475; J7030; G0480

== ENCOUNTER 2023-12-25 20:34 | Emergency (ER) | payer MEDICARE, MEDICAID ==
[~2023-12-25] VITALS: Ht 175.3 cm; Wt 82.0 kg
[~2023-12-25 20:34] MED LIST changes: +ACET325T51 PO; -BUPR-50 PO; +CEPH-558 PO; +CHLO5CAP4 PO; -FINA-27 PO; -FOLI0.4T6 PO; -LISI2.5T13 PO; -METH10SO PO; -METO25 PO; -PANT-31 PO; -PARO10TA89 PO; +PRAV20TA4 PO; -PROP20TA96 PO; +TIOT4MIS2 IH; -TOPI25 PO
[2023-12-25 20:41] VITALS: TEMP 98.7
[2023-12-25 22:06] LABS: BASOPHILS % (AUTO) 0.6 % (0.0-2.0); EOSINOPHILS % (AUTO) 0.4 % (1.0-6.0); HEMOGLOBIN 15.4 g/dL (13.5-17.5); LYMPHOCYTES # (AUTO) 1.2 K/uL (1.0-4.8); LYMPHOCYTES % (AUTO) 15.1 % (22.0-44.0); MEAN CORPUSCULAR HEMOGLOBIN 32.2 pg (26.0-34.0); MEAN CORPUSCULAR HGB CONC 33.4 G/dL (31.0-37.0); MEAN CORPUSCULAR VOLUME 96 fL (80-100); MONOCYTES # (AUTO) 0.6 K/uL (0.1-1.0); MONOCYTES % (AUTO) 7.3 % (2.0-9.0); NEUTROPHILS # (AUTO) 5.9 K/uL (1.8-7.7); NEUTROPHILS % (AUTO) 76.6 % (40.0-70.0); PLATELET COUNT (AUTO) 222 K/uL (150-450); RED BLOOD CELL COUNT(AUTO) 4.79 MIL/uL (4.50-5.90); RED CELL DISTRIBUTION WIDTH 15.3 % (11.5-14.5); WHITE BLOOD COUNT (AUTO) 7.7 K/uL (4.5-11.0)
[2023-12-25 22:16] LABS: CALCIUM, TOTAL 9.4 mg/dL (8.8-10.5); CREATININE 1.25 mg/dL (0.60-1.30); POTASSIUM 3.8 mmol/L (3.5-5.1)
[2023-12-25 22:17] LABS: INR 1.1 (0.9-1.1); PROTHROMBIN TIME 11.5 SEC (9.4-11.6)
[2023-12-25 22:22] LABS: ALBUMIN 3.5 g/dL (3.4-5.0); BILIRUBIN,TOTAL 0.5 mg/dL (0.1-1.0); TOTAL PROTEIN, SERUM 7.7 g/dL (6.4-8.2)
[2023-12-25 22:24] LABS: TROPONIN I-HIGH SENSITIVITY 9 ng/L (<76)
[2023-12-25] MEDS: SODIUM CHLORIDE 0.9% 1,000 ML IV ONE (22:30)
[2023-12-25 23:29] LABS: APPEARANCE,URINE HAZY (CLEAR); BILIRUBIN,URINE NEGATIVE (NEGATIVE); COLOR,URINE LIGHT YELLOW (YELLOW); GLUCOSE, URINE (UA) NEGATIVE (NEGATIVE); KETONES,URINE NEGATIVE (NEGATIVE); LEUKOCYTE ESTERASE ,URINE LARGE (NEGATIVE); NITRATE,URINE POSITIVE (NEGATIVE); OCCULT BLOOD,URINE NEGATIVE (NEGATIVE); PH,URINE 5.5 (5.0-8.0); PROTEIN,URINE NEGATIVE (NEGATIVE); SPECIFIC GRAVITIY, URINE 1.013 (1.003-1.030); UROBILINOGEN,URINE <=1.0 mg/dL (<=1.0)
[2023-12-25 23:45] LABS: BACTERIA,URINE Moderate /HPF (None Seen); RBC,URINE None Seen /HPF (0-2); SQUAMOUS EPITHELIAL CELL,UR None Seen /LPF (None Seen); WBC,URINE 26-50 /HPF (0-5)
[2023-12-26 00:35] VITALS: BP 121/77; PULSE 79; RESP 16
[2023-12-26] MEDS ORDERED: CEPH-558 PO (03:06)
[2023-12-26] MEDS: CEPHALEXIN MONOHYDRATE 500 MG CAPSULE PO ONE (03:25)
== END 2023-12-26 03:33 | disposition home or self-care (01) ==
LOC: EMS 20:35
DX: N39.0 Urinary tract infection, site not specified (principal); R42 Dizziness and giddiness; F10.20 Alcohol dependence, uncomplicated; F32.A Depression, unspecified; I10 Essential (primary) hypertension; F17.210 Nicotine dependence, cigarettes, uncomplicated; F12.90 Cannabis use, unspecified, uncomplicated; N40.0 Benign prostatic hyperplasia without lower urinary tract symptoms; G89.29 Other chronic pain; M54.9 Dorsalgia, unspecified; Z88.8 Allergy status to other drugs, medicaments and biological substances
CPT/HCPCS: 71045; 80053; 81001; 82550; 83880; 84484; 85025; 85610; 85730; 87086; 87186; 93005; 99285; 36415-L1; 36415-TC

== ENCOUNTER 2024-05-18 19:35 | Emergency (ER) | payer MEDICARE, MEDICAID ==
[~2024-05-18] VITALS: Ht 182.9 cm; Wt 66.7 kg
[~2024-05-18 19:35] MED LIST changes: -CEPH-558 PO; -CHLO5CAP4 PO; +LEVO-72 PO
[2024-05-18 21:20] LABS: CALCIUM, TOTAL 9.9 mg/dL (8.8-10.5); CREATININE 1.3 mg/dL (0.60-1.30); POTASSIUM 4.5 mmol/L (3.5-5.1)
[2024-05-18 21:24] LABS: ALBUMIN 3.7 g/dL (3.4-5.0); BILIRUBIN,TOTAL 0.5 mg/dL (0.1-1.0); TOTAL PROTEIN, SERUM 7.9 g/dL (6.4-8.2)
[2024-05-18 21:28] LABS: TROPONIN I-HIGH SENSITIVITY 8 ng/L (<76)
[2024-05-18 21:43] LABS: BASOPHILS % (AUTO) 0.4 % (0.0-2.0); EOSINOPHILS % (AUTO) 0.3 % (1.0-6.0); HEMATOCRIT 43.8 % (41-53); HEMOGLOBIN 14.9 g/dL (13.5-17.5); LYMPHOCYTES # (AUTO) 0.9 K/uL (1.0-4.8); LYMPHOCYTES % (AUTO) 11.7 % (22.0-44.0); MEAN CORPUSCULAR VOLUME 97 fL (80-100); MONOCYTES # (AUTO) 0.6 K/uL (0.1-1.0); MONOCYTES % (AUTO) 7.5 % (2.0-9.0); NEUTROPHILS # (AUTO) 6.5 K/uL (1.8-7.7); NEUTROPHILS % (AUTO) 80.1 % (40.0-70.0); PLATELET COUNT (AUTO) 200 K/uL (150-450); RED BLOOD CELL COUNT(AUTO) 4.52 MIL/uL (4.50-5.90); RED CELL DISTRIBUTION WIDTH 15.4 % (11.5-14.5); WHITE BLOOD COUNT (AUTO) 8.1 K/uL (4.5-11.0)
[2024-05-19] VITALS: BP 119/68; PULSE 71; RESP 14; TEMP 97.3
== END 2024-05-19 01:53 | disposition home or self-care (01) ==
LOC: EMS 19:35
DX: R42 Dizziness and giddiness (principal); F12.90 Cannabis use, unspecified, uncomplicated; I10 Essential (primary) hypertension; F17.210 Nicotine dependence, cigarettes, uncomplicated; Z88.8 Allergy status to other drugs, medicaments and biological substances
CPT/HCPCS: 80053; 84484; 85025; 93005; 99284; 99406

== ENCOUNTER 2024-10-08 12:59 | Emergency (ER) | payer MEDICARE, MEDICAID ==
[~2024-10-08] VITALS: Ht 175.3 cm; Wt 68.5 kg
[~2024-10-08 12:59] MED LIST changes: +ACET-3862 PO; -ACET325T51 PO
[2024-10-08 14:03] VITALS: TEMP 98.9
[2024-10-08] MEDS ORDERED: METO25 PO (14:45)
[2024-10-08] MEDS: METOPROLOL TARTRATE 25 MG TABLET PO ONE (15:25)
[2024-10-08 16:17] VITALS: BP 161/113; PULSE 87; RESP 16; O2SAT 96
== END 2024-10-08 16:29 | disposition home or self-care (01) ==
LOC: EMS 12:59
DX: F10.10 Alcohol abuse, uncomplicated (principal); I10 Essential (primary) hypertension; F12.90 Cannabis use, unspecified, uncomplicated; F17.210 Nicotine dependence, cigarettes, uncomplicated; Z87.440 Personal history of urinary (tract) infections; Z79.899 Other long term (current) drug therapy; Y90.9 Presence of alcohol in blood, level not specified
CPT/HCPCS: 93005; 99283

== ENCOUNTER 2024-11-24 10:24 | Inpatient (IN) | payer MEDICARE, MEDICAID ==
[~2024-11-24] VITALS: Ht 175.3 cm; Wt 63.6 kg
[~2024-11-24 10:24] MED LIST changes: +METO25 PO
[2024-11-24] MEDS ORDERED: PANT-31 PO (10:47)
[2024-11-24] MEDS ORDERED: THIA100T80 PO (10:47)
[2024-11-24] MEDS ORDERED: ASPI-1450 PO (10:47)
[2024-11-24] MEDS ORDERED: FOLI-130 PO (10:47)
[2024-11-24] MEDS ORDERED: VIT1CAPS47 PO (10:47)
[2024-11-24] MEDS ORDERED: ARIP5TAB37 PO (10:47)
[2024-11-24] MEDS ORDERED: PARO-38 PO (10:47)
[2024-11-24] MEDS ORDERED: NALT50TA33 PO (10:47)
[2024-11-24 11:07] LABS: BASOPHILS % (AUTO) 0.9 % (0.0-2.0); EOSINOPHILS % (AUTO) 1.2 % (1.0-6.0); HEMATOCRIT 44.4 % (41-53); HEMOGLOBIN 14.7 g/dL (13.5-17.5); LYMPHOCYTES % (AUTO) 34.6 % (22.0-44.0); MEAN CORPUSCULAR HEMOGLOBIN 31.9 pg (26.0-34.0); MEAN CORPUSCULAR HGB CONC 33.1 G/dL (31.0-37.0); MEAN CORPUSCULAR VOLUME 96 fL (80-100); MONOCYTES # (AUTO) 0.6 K/uL (0.1-1.0); MONOCYTES % (AUTO) 10.5 % (2.0-9.0); NEUTROPHILS % (AUTO) 52.8 % (40.0-70.0); PLATELET COUNT (AUTO) 179 K/uL (150-450); RED BLOOD CELL COUNT(AUTO) 4.61 MIL/uL (4.50-5.90); RED CELL DISTRIBUTION WIDTH 15.2 % (11.5-14.5); WHITE BLOOD COUNT (AUTO) 5.6 K/uL (4.5-11.0)
[2024-11-24 11:18] LABS: ANION GAP 6 mmol/L (8-16); CALCIUM, TOTAL 9.4 mg/dL (8.8-10.5); CARBON DIOXIDE 30 mmol/L (22-29); CHLORIDE 105 mmol/L (98-107); CREATININE 1.17 mg/dL (0.60-1.30); GLOMERULAR FILTR. RATE CALC > 60 mL/min (>60); GLUCOSE,RANDOM 99 mg/dL (70-110); POTASSIUM 4.7 mmol/L (3.5-5.1); SODIUM SERUM 141 mmol/L (136-145); UREA NITROGEN, BLOOD 21 mg/dL (7-18)
[2024-11-24 11:26] LABS: LACTIC ACID 1.3 mmol/L (0.4-2.0)
[2024-11-24 11:37] LABS: ALANINE AMINOTRANSFERASE 21 U/L (12-78); ALBUMIN 3.2 g/dL (3.4-5.0); ALKALINE PHOSPHATASE 108 U/L (46-116); ASPARTATE AMINOTRANSFERASE 17 U/L (15-37); BILIRUBIN,TOTAL 0.4 mg/dL (0.1-1.0); TOTAL PROTEIN, SERUM 7.7 g/dL (6.4-8.2); TROPONIN I-HIGH SENSITIVITY 9 ng/L (<76)
[2024-11-24 11:44] LABS: APPEARANCE,URINE TURBID (CLEAR); BILIRUBIN,URINE NEGATIVE (NEGATIVE); COLOR,URINE YELLOW (YELLOW); GLUCOSE, URINE (UA) NEGATIVE (NEGATIVE); KETONES,URINE NEGATIVE (NEGATIVE); LEUKOCYTE ESTERASE ,URINE LARGE (NEGATIVE); NITRATE,URINE NEGATIVE (NEGATIVE); OCCULT BLOOD,URINE SMALL (NEGATIVE); PH,URINE 8.5 (5.0-8.0); PROTEIN,URINE 30-70 mg/dL (NEGATIVE); SPECIFIC GRAVITIY, URINE 1.013 (1.003-1.030); UROBILINOGEN,URINE <=1.0 mg/dL (<=1.0)
[2024-11-24 11:54] LABS: ALCOHOL, URINE DRUG SCREEN NEGATIVE (NEGATIVE); AMPHET/METH SCREEN,URINE NEGATIVE (NEGATIVE); BARBITURATE SCREEN, URINE NEGATIVE (NEGATIVE); BENZODIAZEPINES SCREEN,URINE NEGATIVE (NEGATIVE); CANNABINOID SCREEN,URINE NEGATIVE (NEGATIVE); COCAINE SCREEN,URINE NEGATIVE (NEGATIVE); METHADONE SCREEN, URINE NEGATIVE (NEGATIVE); OPIATE SCREEN,URINE NEGATIVE (NEGATIVE); PHENCYCLIDINE SCREEN,URINE NEGATIVE (NEGATIVE)
[2024-11-24 11:58] LABS: BACTERIA,URINE Moderate /HPF (None Seen)
[2024-11-24] MEDS ORDERED: POLY15DR38 OU (12:37)
[2024-11-24] MEDS ORDERED: ASPI-1444 PO (12:37)
[2024-11-24] MEDS ORDERED: PANT20TA18 PO (12:37)
[2024-11-24] MEDS ORDERED: TERB30CR8 TP (12:37)
[2024-11-24] MEDS ORDERED: METO-408 PO (12:37)
[2024-11-24] MEDS ORDERED: ALBU18HF12 IH (12:37)
[2024-11-24] MEDS ORDERED: APIX2.5T PO (12:37)
[2024-11-24] MEDS: CefTRIAXone 1 GM/DEXTROSE 50 ML IV ONE (13:00)
[2024-11-24] MEDS: SODIUM CHLORIDE 0.9% 1,000 ML IV ONE (13:06)
[2024-11-24] MEDS ORDERED: MAGNESIUM HYDROXIDE SUSPENSION 30 ML UDCUP PO PRN (13:15)
[2024-11-24] MEDS ORDERED: ACETAMINOPHEN 325 MG TABLET PO PRN (13:15)
[2024-11-24] MEDS: HEPARIN SODIUM,PORCINE 5,000 UNITS/ML VIAL SQ SCH (16:17)
[2024-11-24 18:12] VITALS: BP 131/86; PULSE 83; RESP 18; TEMP 98; O2SAT 97
[2024-11-24 21:19] VITALS: BP 137/67; PULSE 74; RESP 20; TEMP 98.3; O2SAT 93
[2024-11-24] MEDS: INFLUENZA VIRUS VACCINE TVS (6MO+) 2024-25/PF 45 MCG/0.5 ML SYRINGE IM. ONE (23:25)
[2024-11-25 05:51] VITALS: BP 151/86; PULSE 81; RESP 20; TEMP 98.1; O2SAT 97
[2024-11-25 08:08] VITALS: BP 141/90; PULSE 75; RESP 20; TEMP 97.4; O2SAT 96
[2024-11-25] MEDS: CefTRIAXone 1 GM/DEXTROSE 50 ML IV SCH (13:44)
[2024-11-25] MEDS ORDERED: SODIUM CHLORIDE 0.9% 250 ML IV ONE (13:47)
[2024-11-25 15:36] VITALS: BP 131/81; PULSE 85; RESP 20; TEMP 98.3; O2SAT 98
[2024-11-25] MEDS: APIXABAN 2.5 MG TABLET PO SCH (20:19)
[2024-11-25 20:20] VITALS: BP 137/82; PULSE 82; RESP 18; TEMP 97.7; O2SAT 95
[2024-11-26 04:25] VITALS: BP 137/89; PULSE 84; RESP 16; TEMP 98.5; O2SAT 96
[2024-11-26 07:49] VITALS: BP 146/92; PULSE 77; RESP 20; TEMP 98.4; O2SAT 98
[2024-11-26] MEDS: ARIPiprazole 5 MG TABLET PO SCH (08:16)
[2024-11-26] MEDS: FOLIC ACID 1 MG TABLET PO SCH (08:16)
[2024-11-26] MEDS: ASPIRIN 81 MG DR TABLET PO SCH (08:16)
[2024-11-26] MEDS: METOPROLOL SUCCINATE 25 MG ER TABLET PO SCH (08:16)
[2024-11-26] MEDS: THIAMINE 100 MG TABLET PO SCH (08:18)
[2024-11-26 10:02] LABS: BASOPHILS % (AUTO) 1.2 % (0.0-2.0); HEMATOCRIT 43.6 % (41-53); HEMOGLOBIN 14.6 g/dL (13.5-17.5); LYMPHOCYTES # (AUTO) 1.5 K/uL (1.0-4.8); LYMPHOCYTES % (AUTO) 36.3 % (22.0-44.0); MEAN CORPUSCULAR HEMOGLOBIN 31.7 pg (26.0-34.0); MEAN CORPUSCULAR HGB CONC 33.5 G/dL (31.0-37.0); MEAN CORPUSCULAR VOLUME 95 fL (80-100); MONOCYTES # (AUTO) 0.4 K/uL (0.1-1.0); MONOCYTES % (AUTO) 9.3 % (2.0-9.0); NEUTROPHILS # (AUTO) 2.2 K/uL (1.8-7.7); NEUTROPHILS % (AUTO) 52.2 % (40.0-70.0); PLATELET COUNT (AUTO) 193 K/uL (150-450); RED CELL DISTRIBUTION WIDTH 14.9 % (11.5-14.5); WHITE BLOOD COUNT (AUTO) 4.1 K/uL (4.5-11.0)
[2024-11-26 10:13] LABS: ANION GAP 7 mmol/L (8-16); CALCIUM, TOTAL 9.2 mg/dL (8.8-10.5); CARBON DIOXIDE 30 mmol/L (22-29); CHLORIDE 102 mmol/L (98-107); CREATININE 1.09 mg/dL (0.60-1.30); GLOMERULAR FILTR. RATE CALC > 60 mL/min (>60); GLUCOSE,RANDOM 177 mg/dL (70-110); SODIUM SERUM 139 mmol/L (136-145); UREA NITROGEN, BLOOD 14 mg/dL (7-18)
[2024-11-26] MEDS ORDERED: METO25XL PO (10:48)
[2024-11-26] MEDS ORDERED: CEPH-558 PO (10:49)
[2024-11-26 15:14] VITALS: BP 126/81; PULSE 78; RESP 18; TEMP 98.6; O2SAT 97
== END 2024-11-26 18:35 | DRG 689 ==
LOC: EMS 10:24 → EDH 13:12 → 6S 18:10
PROVIDERS: ADMIT Internal Medicine; ATTEND Internal Medicine
DX: N39.0 Urinary tract infection, site not specified (principal); G92.9 Unspecified toxic encephalopathy; E44.0 Moderate protein-calorie malnutrition; I48.20 Chronic atrial fibrillation, unspecified; E11.9 Type 2 diabetes mellitus without complications; F17.200 Nicotine dependence, unspecified, uncomplicated; I10 Essential (primary) hypertension; Z68.20 Body mass index [BMI] 20.0-20.9, adult; F10.20 Alcohol dependence, uncomplicated; F32.A Depression, unspecified; G51.0 Bell's palsy; Z79.01 Long term (current) use of anticoagulants
CPT/HCPCS: 80048; 80076; 80307; 81001; 83605; 84484; 85025; 87040; 87077; 87086; 87186; 92610; 93005; 97116; 97162; 97530; 99285; J0696; J1644; J7050

== ENCOUNTER 2024-12-12 22:00 | Inpatient (IN) | payer MEDICARE, MEDICAID ==
[~2024-12-12] VITALS: Ht 175.3 cm; Wt 72.0 kg
[~2024-12-12 22:00] MED LIST changes: +ALBU18HF12 IH; +APIX2.5T PO; +ARIP5TAB37 PO; +ASPI-1444 PO; +CEPH-558 PO; +FOLI-130 PO; -LEVO-72 PO; -METO25 PO; +METO25XL PO; +PANT20TA18 PO; +PARO-38 PO; +THIA100T80 PO; -TIOT4MIS2 IH; +VIT1CAPS47 PO
[2024-12-12 23:15] LABS: BASOPHILS % (AUTO) 0.4 % (0.0-2.0); EOSINOPHILS % (AUTO) 0.4 % (1.0-6.0); HEMOGLOBIN 14.3 g/dL (13.5-17.5); LYMPHOCYTES % (AUTO) 8.8 % (22.0-44.0); MEAN CORPUSCULAR HEMOGLOBIN 31.2 pg (26.0-34.0); MEAN CORPUSCULAR HGB CONC 32.5 G/dL (31.0-37.0); MEAN CORPUSCULAR VOLUME 96 fL (80-100); MONOCYTES # (AUTO) 0.6 K/uL (0.1-1.0); MONOCYTES % (AUTO) 5.5 % (2.0-9.0); NEUTROPHILS # (AUTO) 9.5 K/uL (1.8-7.7); NEUTROPHILS % (AUTO) 84.9 % (40.0-70.0); PLATELET COUNT (AUTO) 203 K/uL (150-450); RED BLOOD CELL COUNT(AUTO) 4.59 MIL/uL (4.50-5.90); RED CELL DISTRIBUTION WIDTH 15.8 % (11.5-14.5); WHITE BLOOD COUNT (AUTO) 11.1 K/uL (4.5-11.0)
[2024-12-12 23:25] LABS: ANION GAP 8 mmol/L (8-16); CALCIUM, TOTAL 9.7 mg/dL (8.8-10.5); CARBON DIOXIDE 26 mmol/L (22-29); CHLORIDE 104 mmol/L (98-107); CREATININE 1.05 mg/dL (0.60-1.30); GLOMERULAR FILTR. RATE CALC > 60 mL/min (>60); GLUCOSE,RANDOM 124 mg/dL (70-110); POTASSIUM 5.1 mmol/L (3.5-5.1); SODIUM SERUM 138 mmol/L (136-145); UREA NITROGEN, BLOOD 24 mg/dL (7-18)
[2024-12-12] MEDS: SODIUM CHLORIDE 0.9% 1,000 ML IV ONE (23:43)
[2024-12-12 23:50] LABS: APPEARANCE,URINE HAZY (CLEAR); BILIRUBIN,URINE NEGATIVE (NEGATIVE); COLOR,URINE YELLOW (YELLOW); GLUCOSE, URINE (UA) NEGATIVE (NEGATIVE); KETONES,URINE NEGATIVE (NEGATIVE); LEUKOCYTE ESTERASE ,URINE LARGE (NEGATIVE); NITRATE,URINE NEGATIVE (NEGATIVE); OCCULT BLOOD,URINE NEGATIVE (NEGATIVE); PH,URINE 8.5 (5.0-8.0); PROTEIN,URINE 30-70 mg/dL (NEGATIVE); SPECIFIC GRAVITIY, URINE 1.017 (1.003-1.030); UROBILINOGEN,URINE <=1.0 mg/dL (<=1.0)
[2024-12-13 00:16] LABS: AMORPHOUS SEDIMENT,UR Many /LPF (None Seen); BACTERIA,URINE Few /HPF (None Seen); RBC,URINE None Seen /HPF (0-2); SQUAMOUS EPITHELIAL CELL,UR Few /LPF (None Seen); TRIPLE PHOSPHATE CRYSTAL,UR Few /LPF (None Seen)
[2024-12-13] MEDS: SODIUM PHOSPHATE,MONO-DIBASIC 133 ML ENEMA PR ONE (00:19)
[2024-12-13] MEDS: CefTRIAXone 1 GM/DEXTROSE 50 ML IV ONE (02:40)
[2024-12-13 06:00] VITALS: BP 127/85; PULSE 111; RESP 18; TEMP 98.2; O2SAT 95
[2024-12-13 08:24] VITALS: BP 126/84; PULSE 116; RESP 18; TEMP 98.2; O2SAT 98
[2024-12-13] MEDS ORDERED: HYDROCODONE/ACETAMINOPHEN 5-325 MG TABLET PO PRN (13:30)
[2024-12-13] MEDS ORDERED: ACETAMINOPHEN 325 MG TABLET PO PRN (13:30)
[2024-12-13] MEDS ORDERED: ONDANSETRON HCL 4 MG/2 ML VIAL IVP PRN (13:30)
[2024-12-13] MEDS ORDERED: ZOLPIDEM TARTRATE 5 MG TABLET PO PRN (13:30)
[2024-12-13] MEDS ORDERED: MORPHINE SULFATE 2 MG/ML SYRINGE IVP PRN (13:30)
[2024-12-13] MEDS ORDERED: BISACODYL 10 MG RECTAL RECTAL SUPPOSITORY PR PRN (13:30)
[2024-12-13] MEDS ORDERED: MAGNESIUM HYDROXIDE SUSPENSION 30 ML UDCUP PO PRN (13:30)
[2024-12-13] MEDS: LACTULOSE 20 GM/30 ML SOLUTION UDCUP PO SCH (14:20)
[2024-12-13 16:55] VITALS: BP 105/76; PULSE 107; RESP 18; TEMP 98.5; O2SAT 98
[2024-12-13 21:13] VITALS: BP 123/80; PULSE 90; RESP 18; TEMP 98.5; O2SAT 99
[2024-12-13] MEDS: DOCUSATE SODIUM 100 MG CAPSULE PO SCH (21:33)
[2024-12-13] MEDS: APIXABAN 2.5 MG TABLET PO SCH (21:33)
[2024-12-13] MEDS: BISACODYL 10 MG RECTAL RECTAL SUPPOSITORY PR SCH (21:33)
[2024-12-13] MEDS ORDERED: SODIUM CHLORIDE 0.9% 500 ML IV ONE (21:41)
[2024-12-13] MEDS: CefTRIAXone 1 GM/DEXTROSE 50 ML IV SCH (23:02)
[2024-12-14 04:54] VITALS: BP 146/77; PULSE 99; RESP 20; TEMP 98.5; O2SAT 96
[2024-12-14 06:30] LABS: BASOPHILS % (AUTO) 0.7 % (0.0-2.0); EOSINOPHILS % (AUTO) 0.9 % (1.0-6.0); HEMOGLOBIN 14.5 g/dL (13.5-17.5); LYMPHOCYTES # (AUTO) 2.6 K/uL (1.0-4.8); LYMPHOCYTES % (AUTO) 34.9 % (22.0-44.0); MEAN CORPUSCULAR HEMOGLOBIN 31.3 pg (26.0-34.0); MEAN CORPUSCULAR VOLUME 95 fL (80-100); MONOCYTES # (AUTO) 0.8 K/uL (0.1-1.0); MONOCYTES % (AUTO) 10.7 % (2.0-9.0); NEUTROPHILS # (AUTO) 3.9 K/uL (1.8-7.7); NEUTROPHILS % (AUTO) 52.8 % (40.0-70.0); PLATELET COUNT (AUTO) 189 K/uL (150-450); RED BLOOD CELL COUNT(AUTO) 4.64 MIL/uL (4.50-5.90); RED CELL DISTRIBUTION WIDTH 15.4 % (11.5-14.5); WHITE BLOOD COUNT (AUTO) 7.5 K/uL (4.5-11.0)
[2024-12-14 06:51] LABS: ANION GAP 10 mmol/L (8-16); CARBON DIOXIDE 23 mmol/L (22-29); CHLORIDE 104 mmol/L (98-107); CREATININE 0.94 mg/dL (0.60-1.30); GLOMERULAR FILTR. RATE CALC > 60 mL/min (>60); GLUCOSE,RANDOM 89 mg/dL (70-110); POTASSIUM 3.8 mmol/L (3.5-5.1); SODIUM SERUM 137 mmol/L (136-145); UREA NITROGEN, BLOOD 16 mg/dL (7-18)
[2024-12-14 08:05] VITALS: BP 153/88; PULSE 72; RESP 18; TEMP 98.1; O2SAT 95
[2024-12-14] MEDS: ASPIRIN 81 MG DR TABLET PO SCH (08:50)
[2024-12-14] MEDS: PRAVASTATIN SODIUM 20 MG TABLET PO SCH (08:50)
[2024-12-14] MEDS: THIAMINE 100 MG TABLET PO SCH (08:50)
[2024-12-14] MEDS: FOLIC ACID 1 MG TABLET PO SCH (08:50)
[2024-12-14] MEDS: PANTOPRAZOLE SODIUM 40 MG DR TABLET PO SCH (08:50)
[2024-12-14] MEDS: PARoxetine HCL 20 MG TABLET PO SCH (08:51)
[2024-12-14] MEDS: ARIPiprazole 5 MG TABLET PO SCH (08:51)
[2024-12-14] MEDS: METOPROLOL SUCCINATE 25 MG ER TABLET PO SCH (08:51)
[2024-12-14] MEDS ORDERED: LACTULOSE 20 GM/30 ML SOLUTION UDCUP PO PRN (14:45)
[2024-12-14 19:49] VITALS: BP 135/82; PULSE 92; RESP 18; TEMP 97.8; O2SAT 98
[2024-12-15 05:22] VITALS: BP 133/83; PULSE 77; RESP 18; TEMP 98.2; O2SAT 98
[2024-12-15 08:21] VITALS: BP 143/68; PULSE 85; RESP 18; TEMP 98.4; O2SAT 98
[2024-12-15 10:34] LABS: BASOPHILS % (AUTO) 0.8 % (0.0-2.0); EOSINOPHILS % (AUTO) 1.1 % (1.0-6.0); HEMATOCRIT 43.7 % (41-53); HEMOGLOBIN 14.4 g/dL (13.5-17.5); LYMPHOCYTES # (AUTO) 2.2 K/uL (1.0-4.8); LYMPHOCYTES % (AUTO) 21.6 % (22.0-44.0); MEAN CORPUSCULAR HEMOGLOBIN 31.8 pg (26.0-34.0); MEAN CORPUSCULAR VOLUME 96 fL (80-100); MONOCYTES # (AUTO) 1.1 K/uL (0.1-1.0); MONOCYTES % (AUTO) 10.6 % (2.0-9.0); NEUTROPHILS # (AUTO) 6.6 K/uL (1.8-7.7); NEUTROPHILS % (AUTO) 65.9 % (40.0-70.0); PLATELET COUNT (AUTO) 184 K/uL (150-450); RED BLOOD CELL COUNT(AUTO) 4.55 MIL/uL (4.50-5.90); RED CELL DISTRIBUTION WIDTH 15.2 % (11.5-14.5); WHITE BLOOD COUNT (AUTO) 10.1 K/uL (4.5-11.0)
[2024-12-15 16:27] VITALS: BP 138/93; PULSE 82; RESP 18; TEMP 98.3; O2SAT 100
[2024-12-15 21:21] VITALS: BP 131/80; PULSE 83; RESP 18; TEMP 98.3; O2SAT 98
[2024-12-16 04:49] VITALS: BP 146/97; PULSE 81; RESP 18; TEMP 97.9; O2SAT 98
[2024-12-16 08:04] VITALS: BP 147/98; PULSE 84; RESP 18; TEMP 97.9; O2SAT 98
[2024-12-16 10:05] LABS: BASOPHILS % (AUTO) 0.8 % (0.0-2.0); EOSINOPHILS % (AUTO) 1.3 % (1.0-6.0); HEMATOCRIT 42.7 % (41-53); HEMOGLOBIN 14.2 g/dL (13.5-17.5); LYMPHOCYTES # (AUTO) 1.8 K/uL (1.0-4.8); MEAN CORPUSCULAR HEMOGLOBIN 31.8 pg (26.0-34.0); MEAN CORPUSCULAR HGB CONC 33.3 G/dL (31.0-37.0); MEAN CORPUSCULAR VOLUME 95 fL (80-100); MONOCYTES # (AUTO) 0.8 K/uL (0.1-1.0); MONOCYTES % (AUTO) 11.8 % (2.0-9.0); NEUTROPHILS # (AUTO) 3.9 K/uL (1.8-7.7); NEUTROPHILS % (AUTO) 59.1 % (40.0-70.0); PLATELET COUNT (AUTO) 188 K/uL (150-450); RED BLOOD CELL COUNT(AUTO) 4.47 MIL/uL (4.50-5.90); RED CELL DISTRIBUTION WIDTH 15.2 % (11.5-14.5); WHITE BLOOD COUNT (AUTO) 6.6 K/uL (4.5-11.0)
[2024-12-16] MEDS ORDERED: POLY17PO47 PO (12:41)
[2024-12-16 15:49] VITALS: BP 127/81; PULSE 85; RESP 18; TEMP 98.3; O2SAT 93
[2024-12-16] MEDS ORDERED: LEVO-72 PO (16:17)
== END 2024-12-16 17:06 | disposition home health service (06) | DRG 389 ==
LOC: EMS 22:13 → 4E 12-13 02:46 → EDH 12-13 03:56 → UNDOADMIN 12-13 03:56 → 4E 12-13 05:45 → EDH 12-13 05:45 → 4E 12-14 09:06
PROVIDERS: ADMIT Internal Medicine; ATTEND Internal Medicine
DX: K56.41 Fecal impaction (principal); E44.0 Moderate protein-calorie malnutrition; N39.0 Urinary tract infection, site not specified; K92.2 Gastrointestinal hemorrhage, unspecified; R65.10 Systemic inflammatory response syndrome (SIRS) of non-infectious origin without acute organ dysfunction; F10.20 Alcohol dependence, uncomplicated; I10 Essential (primary) hypertension; F32.A Depression, unspecified; Z88.8 Allergy status to other drugs, medicaments and biological substances; G51.0 Bell's palsy; Z87.891 Personal history of nicotine dependence; E78.5 Hyperlipidemia, unspecified; I48.0 Paroxysmal atrial fibrillation; F99 Mental disorder, not otherwise specified; Z68.23 Body mass index [BMI] 23.0-23.9, adult; Z79.01 Long term (current) use of anticoagulants; Z79.82 Long term (current) use of aspirin; Z79.899 Other long term (current) drug therapy
CPT/HCPCS: 74018; 80048; 81001; 82271; 85025; 87040; 87077; 87086; 87186; 96365; 97116; 97162; 99285; G0378; G0480; J0696; J7040; 36415-L1; 36415-TC